=== PATIENT | male | born 1980 | race Caucasian/White ===

== ENCOUNTER 2016-02-23 23:00 | Emergency (ER) | payer OTHER ==
[2016-02-23 23:09] VITALS: BP 121/66; PULSE 75; TEMP 98.1; BMI 29.9
[2016-02-23] MEDS ORDERED: SODIUM CHLORIDE 1,000 ML IV ONE (23:12)
--- NOTE | 2016-02-23 23:13 | PDOC ---
History of Present Illness <Antoni Palacio - Last Filed: 02/24/16 00:30> - General History Source: Patient Exam Limitations: No Limitations - History of Present Illness Initial Comments: 02/23/16 23:50 The patient is a 35 year old male, with no significant past medical history, who presents to the emergency department with nausea and intermittent RUQ abdominal pain for the past couple of months but worsening over the past couple of days. The patient states that his pain has been gradually increasing and reports that it radiates from his right back around to the RUQ of his abdomen. The patient reports that the pain is exacerbated with eating and drinking; he reports that it comes on right after he eats/drinks and lasts for a few minutes in duration. Most recent meal was at 2PM today. The patient was seen by Dr. Pollock for these symptoms and was given orders to have bloodwork and an ultrasound done. The patient states that due to insurance issues he has not yet done so. The patient presents to the ED today because his pain became too unbearable. The patient reports prior history of acid reflux and was on PPIs several years ago. The patient denies fever, chills, vomiting, diarrhea, melena or any changes in urination. Allergies: None reported. Past Surgical History: None reported. Social History: Non smoker. Denies alcohol or drug use. <Chelsea Fairbanks - Last Filed: 02/24/16 00:32> <Maria Teresa Krishnamurthy - Last Filed: 02/24/16 02:12> - General Chief Complaint: Pain, Acute Stated Complaint: ABDOMINAL PAIN Time Seen by Provider: 02/23/16 23:07 Past History - Past Medical History GI Disorders: (fatty liver after anti fungals) - Psycho/Social/Smoking Cessation Hx Suicidal Ideation: No Smoking History: Never smoked <Antoni Palacio - Last Filed: 02/24/16 00:30> <Chelsea Fairbanks - Last Filed: 02/24/16 00:32> <Maria Teresa Krishnamurthy - Last Filed: 02/24/16 02:12> - Past Medical History Allergies/Adverse Reactions: Allergies Allergy/AdvReac Type Severity Reaction Status Date / Time No Known Allergies Allergy Verified 02/23/16 23:09 Home Medications: Ambulatory Orders NK [No Known Home Medication] 02/23/16 Review of Systems - Review of Systems Constitutional: No: Chills, Fever Respiratory: No: Cough, Shortness of Breath Cardiac (ROS): No: Chest Pain, Edema ABD/GI: Yes: Nausea, Vomiting. No: Blood Streaked Bowels, Diarrhea : No: Burning, Dysuria, Flank Pain All Other Systems: Reviewed and Negative <Antoin Palacio - Last Filed: 02/24/16 00:30> *Physical Exam - Vital Signs Last Vital Signs Temp Pulse Resp BP Pulse Ox 98.1 F 75 20 121/66 98 02/23/16 23:07 02/23/16 23:07 02/23/16 23:07 02/23/16 23:07 02/23/16 23:07 <Antoni Palacio - Last Filed: 02/24/16 00:30> - Vital Signs Last Vital Signs Temp Pulse Resp BP Pulse Ox 98.1 F 75 20 121/66 98 02/23/16 23:07 02/23/16 23:07 02/23/16 23:07 02/23/16 23:07 02/23/16 23:07 - Physical Exam Comments: 02/23/16 23:54 GENERAL: The patient is awake, alert, and fully oriented, in no acute distress. HEAD: Normal with no signs of trauma. EYES: Pupils equal, round and reactive to light, extraocular movements intact, sclera anicteric, conjunctiva clear with no pallor. ENT: Ears normal, nares patent, oropharynx clear without exudates. Moist mucous membranes. NECK: Normal range of motion, supple without lymphadenopathy, JVD, or masses. LUNGS: Breath sounds equal, clear to auscultation bilaterally. No wheeze/ crackles. HEART: Regular rate and rhythm, normal S1 and S2 without murmur or rub. ABDOMEN: Right abdominal tenderness with guarding, most tender in the right mid and right lower abdomen. Soft/nondistended. BS wnl. No rebound. No palpable masses. No hepatosplenomegaly. EXTREMITIES: Normal range of motion, no edema. No clubbing or cyanosis. No cords, erythema, or tenderness. NEUROLOGICAL: Cranial nerves II through XII grossly intact. Normal speech, normal gait. PSYCH: Normal mood, normal affect. SKIN: Warm, dry, normal turgor, no rashes or lesions noted. <Chelsea Fairbanks - Last Filed: 02/24/16 00:32> - Vital Signs Last Vital Signs Temp Pulse Resp BP Pulse Ox 98.1 F 75 20 121/66 98 02/23/16 23:07 02/23/16 23:07 02/23/16 23:07 02/23/16 23:07 02/23/16 23:07 <Maria Teresa Krishnamurthy - Last Filed: 02/24/16 02:12> Heart Score/ECG Review #1 ECG reviewed & interpreted by me at: 23:33 General ECG Interpretation: Sinus Rhythm, Normal Rate (70), Normal Intervals, No acute ischemic changes <Antoni Palacio - Last Filed: 02/24/16 00:30> ED Treatment Course - LABORATORY CBC & Chemistry Diagram: 02/23/16 23:30 02/23/16 23:30 <Antoni Palacio - Last Filed: 02/24/16 00:30> - LABORATORY CBC & Chemistry Diagram: 02/23/16 23:30 02/23/16 23:30 - ADDITIONAL ORDERS Additional order review: 02/23/16 23:30 RBC 5.71 H MCV 82.3 MCHC 33.4 RDW 13.1 MPV 8.7 Neutrophils % 43.2 Lymphocytes % 46.1 H Monocytes % 7.6 Eosinophils % 2.4 Basophils % 0.7 - Medications Given in the ED: ED Medications Discontinued Medications Generic Name Dose Route Start Last Admin Trade Name Fernando PRN Reason Stop Dose Admin Morphine Sulfate 4 mg 02/23/16 23:26 02/23/16 23:35 Morphine Injection - IVPUSH 02/23/16 23:27 4 mg ONCE ONE Administration Ondansetron HCl 4 mg 02/23/16 23:26 02/23/16 23:35 Zofran Injection IVPUSH 02/23/16 23:27 4 mg ONCE ONE Administration <Chelsea Fairbanks - Last Filed: 02/24/16 00:32> - LABORATORY CBC & Chemistry Diagram: 02/23/16 23:30 02/23/16 23:30 - ADDITIONAL ORDERS Additional order review: Laboratory Results 02/23/16 02/23/16 23:30 23:30 Sodium 141 Potassium 4.0 Chloride 103 Carbon Dioxide 26 Anion Gap 12 BUN 15 Creatinine 0.8 Creat Clearance w eGFR > 60 Random Glucose 80 Calcium 9.2 Total Bilirubin 0.8 AST 28 ALT 58 Alkaline Phosphatase 81 Total Protein 8.0 Albumin 4.3 Lipase 124 Urine Color Yellow Urine Appearance Clear Urine pH 5.0 Ur Specific [place] 1.021 Urine Protein Negative Urine Glucose (UA) Negative Urine Ketones Negative Urine Blood Negative Urine Nitrite Negative Urine Bilirubin Negative Urine Urobilinogen Negative Ur Leukocyte Esterase Negative 02/23/16 23:30 RBC 5.71 H MCV 82.3 MCHC 33.4 RDW 13.1 MPV 8.7 Neutrophils % 43.2 Lymphocytes % 46.1 H Monocytes % 7.6 Eosinophils % 2.4 Basophils % 0.7 - Medications Given in the ED: ED Medications Discontinued Medications Generic Name Dose Route Start Last Admin Trade Name Freq PRN Reason Stop Dose Admin Sodium Chloride 1,000 mls @ 1,000 mls/hr 02/23/16 23:12 02/23/16 23:15 Normal Saline - IV 02/24/16 00:11 1,000 mls/hr ONCE ONE Administration Morphine Sulfate 4 mg 02/23/16 23:26 02/23/16 23:35 Morphine Injection - IVPUSH 02/23/16 23:27 4 mg ONCE ONE Administration Ondansetron HCl 4 mg 02/23/16 23:26 02/23/16 23:35 Zofran Injection IVPUSH 02/23/16 23:27 4 mg ONCE ONE Administration <Maria Teresa Krishnamurthy - Last Filed: 02/24/16 02:12> Medical Decision Making - Medical Decision Making 02/23/16 23:29 A portion of this note was documented by scribe services under my direction. I have reviewed the details of the note, within reason, and agree with the documentation with the following case summary and management plan written by me. 35-year-old male with history of GERD presents with intermittent right upper quadrant pain for months, worse over the last few days. Right flank radiating to right upper quadrant, worsens with meals, increasing in frequency over the last 24 hours and associated with nausea. No fevers or chills, no black stool or pale stool, no urinary complaints. Patient had outpatient GI workup ordered by Dr. Khemraj, the Patient Has Been Unable to Get the Tests Done, so He Presents for Evaluation. afebrile. well appearing No jaundice or pallor Soft and nondistended. Tenderness along the right abdomen, positive guarding particularly in the right mid and right lower abdomen, negative Verdin's on exam. No CVA tenderness. 35-year-old male with history typical of biliary colic, but exam more tender inferiorly in the right mid and right lower abdomen. Likely GI etiology, rule out biliary colic, history is less consistent with appendicitis but given the tenderness may need CT. Labs, urinalysis EKG Pain control, nausea control, IV fluids Gallbladder ultrasound, consider CT of the abdomen and pelvis if normal Reassess 02/24/16 00:17 No leukocytosis or anemia. Chemistries are within normal limits, including LFTs and lipase. Urinalysis clear. Awaiting ultrasound, will reassess. 02/24/16 00:30 Sono shows fatty infiltration and enlarged liver, but normal LFTs. Will proceed with CTAP given exam findings, r/o colitis/appendicitis/ diverticulitis. If CTAP wnl, can proceed with outpt f/u with Dr. Pollock and GI. Patient was signed out to the oncoming ED physician to follow-up the CTAP, reassess the patient, and dispo accordingly. <Antoni Palacio - Last Filed: 02/24/16 00:30> - Medical Decision Making 02/24/16 00:32 EXAM: GALLBLADDER US Reviewed By: Dr. Robert Gupta IMPRESSION: Hepatic steatosis and hepatomegaly. Normal appearance of the gallbladder, CBD and right kidney. <Chelsea Fairbanks - Last Filed: 02/24/16 00:32> *DC/Admit/Observation/Transfer <Antoni Palacio - Last Filed: 02/24/16 00:30> - Attestations Scribe Attestion: 02/23/16 23:50 Documentation prepared by Chelsea Fairbanks, acting as director medical affairs for Antoni Palacio MD. <Chelsea Fairbanks - Last Filed: 02/24/16 00:32> <Maria Teresa Krishnamurthy - Last Filed: 02/24/16 02:12> Diagnosis at time of Disposition: Right sided abdominal pain, Fatty liver - Discharge Dispostion Condition at time of disposition: Fair - Referrals Referrals: Kriss Henderson MD [Primary Care Provider] - - Patient Instructions Printed Discharge Instructions: DI for Abdominal Pain-Adult, Nonalcoholic Fatty Liver Disease
[2016-02-23] MEDS ORDERED: ONDANSETRON 4 MG/2 ML VIAL IVPUSH ONE (23:26)
[2016-02-23] MEDS ORDERED: morphine CARPU-JECT 4 MG/1 ML DISP.SYRIN IVPUSH ONE (23:26)
[2016-02-23 23:38] LABS: BASOPHIL 0.7 % (0-2.0); EOSINOPHIL 2.4 % (0-4.5); MCH 27.5 pg (25.7-33.7); MCHC 33.4 g/dl (32.0-35.9); MEAN CELL VOLUME 82.3 fl (80-96); MEAN PLT VOLUME 8.7 fl (7.5-11.1); NEUTROPHILS 43.2 % (42.8-82.8); PLATELET COUNT 246 K/MM3 (134-434); RDW 13.1 % (11.9-15.9); WHITE BLOOD COUNT 8.9 K/mm3 (4.0-10.0)
[2016-02-23 23:39] LABS: URINE APPEARANCE CLEAR; URINE BILIRUBIN NEGATIVE (NEGATIVE); URINE BLOOD NEGATIVE (NEGATIVE); URINE COLOR YELLOW; URINE GLUCOSE (UA) NEGATIVE (NEGATIVE); URINE KETONE NEGATIVE (NEGATIVE); URINE LEUK ESTERASE NEGATIVE (NEGATIVE); URINE NITRITE NEGATIVE (NEGATIVE); URINE PROTEIN NEGATIVE (NEGATIVE); URINE UROBILINOGEN NEGATIVE E.U./dl (0.2-1.0)
[2016-02-23] MEDS ORDERED: ONDANSETRON 4 MG/2 ML VIAL ONE (23:40)
[2016-02-23] MEDS ORDERED: morphine CARPU-JECT 4 MG/1 ML DISP.SYRIN ONE (23:40)
[2016-02-24 00:07] LABS: ALBUMIN 4.3 g/dl (3.4-5.0); ALK PHOS 81 U/L (45-117); ANION GAP 12 (8-16); BILIRUBIN,TOTAL 0.8 mg/dL (0.2-1.0); CALCIUM 9.2 mg/dL (8.5-10.1); CO2 26 mmol/L (21-32); CREATININE 0.8 mg/dL (0.7-1.3); GLUCOSE,RANDOM 80 mg/dL (74-106); SGOT/AST 28 U/L (15-37); SGPT/ALT 58 U/L (12-78)
--- NOTE | 2016-02-24 11:24 | EKG ---
Test Reason : Blood Pressure : / mmHG Vent. Rate : 070 BPM Atrial Rate : 070 BPM P-R Int : 152 ms QRS Dur : 084 ms QT Int : 378 ms P-R-T Axes : 036 041 027 degrees QTc Int : 408 ms NORMAL SINUS RHYTHM NORMAL ECG NO PREVIOUS ECGS AVAILABLE Confirmed by MARIAMA GOODWIN MD ([id number]) on 02/24/2016 11:24:26 AM Referred By: Confirmed By:MARIAMA GOODWIN MD
== END 2016-02-24 02:30 | disposition home or self-care (01) ==
LOC: JER 23:00
PROC: 3E0337Z Introduction of Electrolytic and Water Balance Substance into Peripheral Vein, Percutaneous Approach (ICD-10-PCS; principal; 2016-02-23)
PROC: 3E033NZ Introduction of Analgesics, Hypnotics, Sedatives into Peripheral Vein, Percutaneous Approach (ICD-10-PCS; 2016-02-23)
PROC: 3E033GC Introduction of Other Therapeutic Substance into Peripheral Vein, Percutaneous Approach (ICD-10-PCS; 2016-02-23)
DX: K76.0 Fatty (change of) liver, not elsewhere classified (principal)
CPT/HCPCS: 36415; 74177-TC; 76705-TC; 80053; 81003; 83690; 85025; 93005; 93010; 96361; 96374; 96375; 99282-25

== ENCOUNTER 2023-03-12 04:05 | Day surgery (SDC) | payer OTHER ==
[2023-03-05 13:26] VITALS: BMI 31.7
[2023-03-12] MEDS ORDERED: LIDOCAINE 1%/EPI 1:100000 (20 ML MULTI DOSE VIAL) ONE (08:07)
[2023-03-12] MEDS ORDERED: MIDAZOLAM HCL 2 MG/2 ML SINGLE DOSE VIAL ONE (08:44)
[2023-03-12] MEDS ORDERED: PROPOFOL 40 ML ONE (08:44)
[2023-03-12] MEDS ORDERED: SUCCINYLCHOLINE CHLORIDE 200 MG/10 ML SYRINGE ONE (08:44)
[2023-03-12] MEDS ORDERED: ROCURONIUM BROMIDE 50 MG/5 ML SYRINGE ONE (09:10)
[2023-03-12] MEDS ORDERED: ceFAZolin SODIUM 1 GM VIAL IVPB ONE (09:12)
[2023-03-12] MEDS ORDERED: NEOSTIGMINE METHYLSULFATE 0.5 MG/1 ML - 10 ML MDV ONE (09:25)
[2023-03-12] MEDS ORDERED: PROPOFOL 20 ML ONE ×2 (09:25→09:59)
[2023-03-12] MEDS ORDERED: MAGNESIUM SULF 50% (8.12 MEQ/2 ML-1 GM VIAL) ONE (09:31)
[2023-03-12] MEDS ORDERED: ONDANSETRON 4 MG/2 ML VIAL IVPUSH PRN (10:28)
[2023-03-12] MEDS ORDERED: oxyCODONE HCL 5 MG TABLET PO PRN (10:28)
[2023-03-12] MEDS ORDERED: LACTATED RINGERS SOLUTION 1,000 ML IV SCH (10:30)
[2023-03-12] MEDS ORDERED: BENZOCAINE/MENTH/CETYLPYRD CL 1 EACH LOZENGE MM ONE (13:00)
[2023-03-12] MEDS ORDERED: IBUPROFEN 600 MG TABLET (FP) PO ONE ×2 (13:03→14:45)
[2023-03-12 14:26] VITALS: RESP 16
[2023-03-12] MEDS ORDERED: ACETAMINOPHEN 325 MG TABLET (FP) PO ONE (14:45)
[2023-03-12 14:56] VITALS: BP 109/63; PULSE 78; TEMP 98.1
== END 2023-03-12 14:40 | disposition home or self-care (01) ==
LOC: JASU-SURG 04:05
PROVIDERS: ATTEND Otolaryngology
PROC: 0CTPXZZ Resection of Tonsils, External Approach (ICD-10-PCS; principal; 2023-03-12 09:00)
PROC: 0CBN0ZZ Excision of Uvula, Open Approach (ICD-10-PCS; 2023-03-12 09:00)
DX: G47.33 Obstructive sleep apnea (adult) (pediatric) (principal)
CPT/HCPCS: 88304-TC; 94760

== ENCOUNTER 2023-06-25 04:13 | Day surgery (SDC) | payer OTHER ==
[2023-06-17 16:13] VITALS: BMI 29.5
[2023-06-25] MEDS ORDERED: LIDOCAINE 1%/EPI 1:100000 (20 ML MULTI DOSE VIAL) ONE (08:14)
[2023-06-25] MEDS ORDERED: FENTANYL CITRATE/PF 50 MCG/ML VIAL ONE ×4 (08:42→10:49)
[2023-06-25] MEDS ORDERED: PROPOFOL 40 ML ONE (08:43)
[2023-06-25] MEDS ORDERED: MIDAZOLAM HCL 2 MG/2 ML SINGLE DOSE VIAL ONE (08:43)
[2023-06-25] MEDS ORDERED: ROCURONIUM BROMIDE 50 MG/5 ML SYRINGE ONE (08:47)
[2023-06-25] MEDS ORDERED: PROMETHAZINE HCL 25 MG/1 ML VIAL IVPB PRN (08:49)
[2023-06-25] MEDS ORDERED: oxyCODONE HCL 5 MG TABLET PO PRN (08:49)
[2023-06-25] MEDS ORDERED: ONDANSETRON 4 MG/2 ML VIAL IVPUSH PRN (08:49)
[2023-06-25] MEDS: ceFAZolin SODIUM 1 GM VIAL IVPB ONE (08:52)
[2023-06-25] MEDS ORDERED: ceFAZolin SODIUM 1 GM VIAL ONE (08:55)
[2023-06-25] MEDS ORDERED: DEXAMETHASONE SOD PHOSPHATE 4 MG/1 ML VIAL ONE (08:55)
[2023-06-25] MEDS ORDERED: ONDANSETRON 4 MG/2 ML VIAL ONE (08:55)
[2023-06-25] MEDS: LIDOCAINE 1%/EPI 1:100000 (20 ML MULTI DOSE VIAL) IJ ONE ×2 (08:59)
[2023-06-25] MEDS ORDERED: LACTATED RINGERS SOLUTION 1,000 ML IV SCH (09:00)
[2023-06-25] MEDS ORDERED: ACETAMINOPHEN INJECTION 100 ML IVPB ONE (09:15)
[2023-06-25] MEDS ORDERED: SUGAMMADEX SODIUM 200 MG/2 ML VIAL ONE (09:50)
[2023-06-25] MEDS ORDERED: BACITRACIN ZINC 15 GM TUBE TOPICAL OINTMENT ONE (09:51)
[2023-06-25 11:52] VITALS: RESP 18
[2023-06-25 13:02] VITALS: BP 114/70; PULSE 60; TEMP 98
== END 2023-06-25 13:10 | disposition home or self-care (01) ==
LOC: JASU-SURG 04:13
PROVIDERS: ATTEND Otolaryngology
PROC: 09TL7ZZ Resection of Nasal Turbinate, Via Natural or Artificial Opening (ICD-10-PCS; principal; 2023-06-25 08:45)
DX: J34.2 Deviated nasal septum (principal); J34.3 Hypertrophy of nasal turbinates; G47.33 Obstructive sleep apnea (adult) (pediatric)
CPT/HCPCS: 86850; 86900; 86901; 88304-TC; 94760; J0131

== ENCOUNTER 2023-11-02 21:16 | Emergency (ER) | payer OTHER ==
[2023-11-02 21:21] VITALS: BP 113/68; PULSE 84; RESP 16; TEMP 97.9; BMI 31.0
[2023-11-02] MEDS ORDERED: ASPIRIN 81 MG CHEWABLE TABLETS ONE (22:34)
[2023-11-02] MEDS ORDERED: ACETAMINOPHEN INJECTION 100 ML ONE (22:34)
[2023-11-02] MEDS ORDERED: FAMOTIDINE 20 MG/50 ML IVPB 20 MG/50 ML MG IVPB ONE (22:35)
[2023-11-02] MEDS: ACETAMINOPHEN 1000 MG/100 ML BAG IVPB ONE (22:42)
[2023-11-02] MEDS: FAMOTIDINE 20 MG/50 ML IVPB 20 MG/50 ML MG IVPB ONE (22:42)
[2023-11-02] MEDS: ASPIRIN 81 MG CHEWABLE TABLETS PO ONE (22:42)
[2023-11-02 22:49] LABS: BASO % 0.3 % (0-2.0); EOS % 1.5 % (0-4.5); HEMATOCRIT 43.9 % (35.4-49); LYMPH % 26.2 % (8-40); MCH 28.7 pg (25.7-33.7); MCHC 34.3 g/dl (32.0-35.9); MEAN CELL VOLUME 83.7 fl (80-96); MEAN PLT VOLUME 8.1 fl (7.5-11.1); MONO % 7.4 % (3.8-10.2); NEUT % 64.6 % (42.8-82.8); PLATELET COUNT 219 10^3/uL (134-434); RBC 5.24 M/mm3 (4.00-5.60); RDW 13.4 % (11.9-15.9); WHITE BLOOD COUNT 8.3 K/mm3 (4.0-10.0)
[2023-11-02 23:10] LABS: POTASSIUM 4.2 mmol/L (3.5-5.1)
[2023-11-02 23:12] LABS: ALBUMIN 3.7 g/dl (3.4-5.0); BLOOD UREA NITROGEN 18.9 mg/dL (7-18); CALCIUM 9.3 mg/dL (8.5-10.1)
[2023-11-02 23:16] LABS: CREATININE 1.3 mg/dL (0.55-1.3)
[2023-11-02 23:17] LABS: BILIRUBIN,TOTAL 0.4 mg/dL (0.2-1); TOT PROT 7.6 g/dl (6.4-8.2)
== END 2023-11-02 23:38 | disposition home or self-care (01) ==
LOC: JER 21:16
PROC: 3E033GC Introduction of Other Therapeutic Substance into Peripheral Vein, Percutaneous Approach (ICD-10-PCS; principal; 2023-11-02)
PROC: 3E033NZ Introduction of Analgesics, Hypnotics, Sedatives into Peripheral Vein, Percutaneous Approach (ICD-10-PCS; 2023-11-02)
DX: R07.2 Precordial pain (principal)
CPT/HCPCS: 36415; 71046-TC-FY; 80053; 84484; 85025; 93005; 93010; 99285-25; J0131

== ENCOUNTER 2024-12-06 17:52 | Emergency (ER) | payer OTHER ==
[2024-12-06 18:05] VITALS: BP 108/73; PULSE 100; RESP 18; TEMP 98.2; BMI 33.6
[2024-12-06] MEDS ORDERED: KETOROLAC TROMETHAMINE 30 MG/1 ML VIAL ONE (18:26)
[2024-12-06] MEDS: KETOROLAC TROMETHAMINE 30 MG/1 ML VIAL IM ONE (18:30)
== END 2024-12-06 18:52 | disposition home or self-care (01) ==
LOC: JERFT 17:52
PROC: 3E0233Z Introduction of Anti-inflammatory into Muscle, Percutaneous Approach (ICD-10-PCS; principal; 2024-12-06)
DX: M79.631 Pain in right forearm (principal); M25.521 Pain in right elbow
CPT/HCPCS: 96372; 99284-25